=== PATIENT | female | born 1955 | race Two or more races ===

== ENCOUNTER 2019-10-08 13:53 | Inpatient (IN) | payer OTHER ==
[~2019-10-08] VITALS: Ht 165.1 cm; Wt 106.2 kg
[2019-10-08] MEDS ORDERED: ALUM & MAG HYDROX-SIMETH LIQ(MAALOX) 30 ML PO ONE (14:30)
[2019-10-08] MEDS ORDERED: LIDOCAINE VISCOUS 2% 15ML UD PO ONE (14:30)
[2019-10-08] MEDS ORDERED: DONNATAL 5ml ORAL Elix (BELLADONNA ALK-PHENOBARB) PO ONE (14:30)
[2019-10-08 14:47] LABS: Basophils # (auto) 0 10 ^3/uL (0-0.2); Basophils % (auto) 0.5 % (0.0-2.0); Eosinophils # (auto) 0 10 ^3/uL (0-0.8); Hematocrit 40.8 % (36.0-46.0); Hemoglobin 13.5 g/dL (12.2-16.2); Lymphocytes # (auto) 1.1 10 ^3/uL (0.4-5.4); Lymphocytes % (auto) 36.2 % (10.0-50.0); Mean Corpuscular Hemoglobin 27.4 pg (28.0-32.0); Mean Corpuscular Hgb Conc. 33.1 g/dL (32.0-36.0); Monocytes # (auto) 0.3 10 ^3/uL (0-1.3); Monocytes % (auto) 9.2 % (0.0-12.0); Neutrophils # (auto) 1.7 10 ^3/uL (1.6-8.6); Neutrophils % (auto) 54.1 % (37.0-80.0); Nucleated Red Blood Cells % 0.2 %; Platelet Count (auto) 199 10^3/uL (140-450); Red Blood Cells 4.91 10^6/uL (4.0-5.20); Red Cell Distribution Width 13.8 % (11.8-14.3); White Blood Cell 3.1 10^3/uL (4.4-10.8)
[2019-10-08 15:02] LABS: INR 1.01 (0.9-1.15); Partial Thromboplastin Time 26.5 sec (23.64-32.05)
[2019-10-08 15:05] LABS: Albumin 3.4 g/dL (3.4-5.0); Anion Gap 3 (5-15); Blood Urea Nitrogen 16 mg/dL (7-18); Carbon Dioxide 31 mmol/L (21-32); Chloride 100 mmol/L (98-107); Glucose 141 mg/dL (74-106); Lipase 181 U/L (73-393); Potassium 4.2 mmol/L (3.5-5.1); Sodium 134 mmol/L (136-145)
[2019-10-08 15:11] LABS: Alanine Aminotransferase 28 U/L (13-56); Alkaline Phosphatase 72 U/L (45-117); Aspartate Aminotransferase 24 U/L (15-37); BUN/Creatinine Ratio 15.7; Bilirubin, Total 0.4 mg/dL (0.2-1.0); GFR African American 70 mL/min; GFR Non-African American 58 mL/min; Total Protein 7.4 g/dL (6.4-8.2)
[2019-10-08] MEDS ORDERED: DOXYCYCLINE 100 MG TAB/CAP PO ONE (15:30)
[2019-10-08] MEDS ORDERED: DexAMETHasone SOD PHOS 10MG/1ML VIAL INJ IV ONE (15:30)
[2019-10-08] MEDS ORDERED: hydrOXYchloroQUINE SULFATE 200 MG TAB PO ONE (15:30)
[2019-10-08 17:01] LABS: CRP High Sensitivity 3.52 mg/dL (< 0.3)
[2019-10-08] MEDS ORDERED: ACETAMINOPHEN 325 MG TAB PO ONE (17:30)
[2019-10-08] MEDS ORDERED: ALUM & MAG HYDROX-SIMETH LIQ(MAALOX) 30 ML PO PRN (19:15)
[2019-10-08] MEDS ORDERED: ONDANSETRON HCL 4 MG/2 ML VIAL IV PRN (19:15)
[2019-10-08] MEDS ORDERED: ACETAMINOPHEN 500 MG TAB PO PRN (19:15)
[2019-10-08] MEDS ORDERED: ACETAMINOPHEN 325 MG TAB PO PRN (19:15)
[2019-10-08] MEDS ORDERED: NITROGLYCERIN 0.4 MG SL TAB SL PRN (19:15)
[2019-10-08] MEDS ORDERED: TEMAZEPAM 15 MG CAP PO PRN (19:15)
[2019-10-08] MEDS ORDERED: DOCUSATE SOD 100 MG CAP PO PRN (19:15)
[2019-10-08] MEDS: ALBUTEROL SULF HFA 90MCG INH 200DOSE IN SCH (21:20)
[2019-10-08] MEDS: BUDESONIDE (INHALATION) 180 MCG IH IN SCH (21:20)
[2019-10-08] MEDS ORDERED: FAMOTIDINE 20 MG TAB PO SCH (22:00)
[2019-10-08] MEDS: ENOXAPARIN SOD 100 MG/1 ML SYRINGE SC SCH (23:36)
[2019-10-08] MEDS: DOXYCYCLINE 100 MG TAB/CAP PO SCH (23:36)
[2019-10-08] MEDS: SODIUM CHLOR 0.9% PF (SALINE LOCK) 10ML VIAL/SYR IV SCH (23:36)
[2019-10-09] MEDS: SODIUM CHLOR 0.9% PF (SALINE LOCK) 10ML VIAL/SYR IV SCH ×3 (06:08→22:03)
[2019-10-09 08:30] VITALS: BP 132/72
[2019-10-09] MEDS: BUDESONIDE (INHALATION) 180 MCG IH IN SCH ×2 (08:33→22:00)
[2019-10-09] MEDS: ALBUTEROL SULF HFA 90MCG INH 200DOSE IN SCH ×3 (08:33→22:00)
[2019-10-09 09:00] VITALS: BP 163/88
[2019-10-09] MEDS: ASCORBIC ACID 1,000 MG TAB PO SCH (09:34)
[2019-10-09] MEDS: DOXYCYCLINE 100 MG TAB/CAP PO SCH ×2 (09:34→22:03)
[2019-10-09] MEDS: ZINC SULFATE 220mg CAP or TAB PO SCH (09:34)
[2019-10-09] MEDS: ENOXAPARIN SOD 100 MG/1 ML SYRINGE SC SCH ×2 (09:35→22:03)
[2019-10-09] MEDS: CHOLECALCIFEROL (VITD3) 2,000 UNIT CAP PO SCH (09:35)
[2019-10-09] MEDS ORDERED: LISI10TA6 PO (12:05)
[2019-10-09] MEDS ORDERED: FAMO20TA10 PO (12:05)
[2019-10-09] MEDS ORDERED: LOVA40TA72 PO (12:05)
[2019-10-09] MEDS ORDERED: CARV6.2551 PO (12:05)
[2019-10-09] MEDS ORDERED: PANT40T PO (12:05)
[2019-10-09] MEDS ORDERED: METF-370 PO (12:05)
[2019-10-09 14:08] VITALS: BP 133/67
[2019-10-09] MEDS ORDERED: DexAMETHasone SOD PHOS 10MG/1ML VIAL INJ IV ONE (15:00)
[2019-10-09] MEDS ORDERED: DEXTROSE (50%) 50ML SYRG IV PRN (15:30)
[2019-10-09] MEDS: ACCU-CHEK COMFORT CURVE STRIP VI SCH ×2 (17:10→22:15)
[2019-10-09] MEDS: SUCRALFATE 1 GM/10 ML ORAL SUSP PO SCH ×2 (17:10→22:02)
[2019-10-09] MEDS ORDERED: LISINOPRIL 10 MG TAB PO ONE (17:15)
[2019-10-09 17:30] VITALS: BP 162/92
[2019-10-09] MEDS: InsuLIN REG 1unit/0.01ml Soln (100units/ml) SC SCH ×2 (17:31→22:00)
[2019-10-09 22:00] VITALS: BP 132/77
[2019-10-09] MEDS: ATORVASTATIN 20 MG TAB PO SCH (22:01)
[2019-10-09] MEDS: CARVEDILOL 3.125 MG TAB PO SCH (22:02)
[2019-10-09] MEDS: PANTOPRAZOLE 40 MG TAB PO SCH (22:02)
[2019-10-09 23:14] LABS: Basophils # (auto) 0 10 ^3/uL (0-0.2); Basophils % (auto) 0.1 % (0.0-2.0); Eosinophils # (auto) 0 10 ^3/uL (0-0.8); Hematocrit 39.3 % (36.0-46.0); Lymphocytes # (auto) 0.9 10 ^3/uL (0.4-5.4); Lymphocytes % (auto) 13.3 % (10.0-50.0); Mean Corpuscular Hemoglobin 27.5 pg (28.0-32.0); Mean Corpuscular Volume 83.6 fL (80.0-100.0); Monocytes # (auto) 0.4 10 ^3/uL (0-1.3); Monocytes % (auto) 5.4 % (0.0-12.0); Neutrophils # (auto) 5.5 10 ^3/uL (1.6-8.6); Neutrophils % (auto) 81.2 % (37.0-80.0); Platelet Count (auto) 184 10^3/uL (140-450); Red Cell Distribution Width 13.4 % (11.8-14.3); White Blood Cell 6.7 10^3/uL (4.4-10.8)
[2019-10-09 23:32] LABS: Albumin 3.1 g/dL (3.4-5.0); Calcium 8.9 mg/dL (8.5-10.1); Potassium 4.2 mmol/L (3.5-5.1)
[2019-10-09 23:34] LABS: BUN/Creatinine Ratio 20.9
[2019-10-09 23:38] LABS: Bilirubin, Total 0.4 mg/dL (0.2-1.0); Total Protein 6.9 g/dL (6.4-8.2)
[2019-10-09 23:48] LABS: Urine Bacteria FEW /hpf (None Seen); Urine Blood Negative /uL (Negative); Urine Specific Gravity 1.017 (1.001-1.035); Urine WBC 1 /hpf (0 - 5)
[2019-10-10 05:00] VITALS: BP 134/75
[2019-10-10 06:46] LABS: Basophils # (auto) 0 10 ^3/uL (0-0.2); Basophils % (auto) 0.1 % (0.0-2.0); Eosinophils # (auto) 0 10 ^3/uL (0-0.8); Hematocrit 41.6 % (36.0-46.0); Hemoglobin 13.8 g/dL (12.2-16.2); Lymphocytes # (auto) 1.1 10 ^3/uL (0.4-5.4); Lymphocytes % (auto) 15.2 % (10.0-50.0); Mean Corpuscular Hgb Conc. 33.2 g/dL (32.0-36.0); Mean Corpuscular Volume 84.2 fL (80.0-100.0); Monocytes # (auto) 0.4 10 ^3/uL (0-1.3); Monocytes % (auto) 5.4 % (0.0-12.0); Neutrophils # (auto) 5.9 10 ^3/uL (1.6-8.6); Neutrophils % (auto) 79.3 % (37.0-80.0); Nucleated Red Blood Cells % 0.1 %; Platelet Count (auto) 191 10^3/uL (140-450); Red Blood Cells 4.94 10^6/uL (4.0-5.20); Red Cell Distribution Width 13.5 % (11.8-14.3); White Blood Cell 7.5 10^3/uL (4.4-10.8)
[2019-10-10] MEDS: SODIUM CHLOR 0.9% PF (SALINE LOCK) 10ML VIAL/SYR IV SCH ×3 (06:55→22:21)
[2019-10-10] MEDS: ACCU-CHEK COMFORT CURVE STRIP VI SCH ×4 (06:56→22:23)
[2019-10-10] MEDS: SUCRALFATE 1 GM/10 ML ORAL SUSP PO SCH ×4 (06:56→22:21)
[2019-10-10] MEDS: InsuLIN REG 1unit/0.01ml Soln (100units/ml) SC SCH ×4 (07:00→22:27)
[2019-10-10 07:07] LABS: Albumin 3.2 g/dL (3.4-5.0); Calcium 9.2 mg/dL (8.5-10.1)
[2019-10-10 07:15] LABS: BUN/Creatinine Ratio 20.2; Bilirubin, Total 0.4 mg/dL (0.2-1.0); CRP High Sensitivity 1.88 mg/dL (< 0.3); Total Protein 7.3 g/dL (6.4-8.2)
[2019-10-10] MEDS: ALBUTEROL SULF HFA 90MCG INH 200DOSE IN SCH ×3 (07:38→21:54)
[2019-10-10] MEDS: BUDESONIDE (INHALATION) 180 MCG IH IN SCH ×2 (07:38→21:54)
[2019-10-10 08:51] LABS: INR 1.04 (0.9-1.15); Partial Thromboplastin Time 29.1 sec (23.64-32.05)
[2019-10-10 09:00] VITALS: BP 131/74
[2019-10-10] MEDS: DexAMETHasone SOD PHOS 10MG/1ML VIAL INJ IV SCH (09:11)
[2019-10-10] MEDS: ASCORBIC ACID 1,000 MG TAB PO SCH (09:12)
[2019-10-10] MEDS: DOXYCYCLINE 100 MG TAB/CAP PO SCH ×2 (09:12→22:22)
[2019-10-10] MEDS: PANTOPRAZOLE 40 MG TAB PO SCH ×2 (09:12→22:22)
[2019-10-10] MEDS: ZINC SULFATE 220mg CAP or TAB PO SCH (09:12)
[2019-10-10] MEDS: CARVEDILOL 3.125 MG TAB PO SCH ×2 (09:12→22:22)
[2019-10-10] MEDS: CHOLECALCIFEROL (VITD3) 2,000 UNIT CAP PO SCH (09:13)
[2019-10-10] MEDS: LISINOPRIL 10 MG TAB PO SCH (09:13)
[2019-10-10] MEDS: ENOXAPARIN SOD 100 MG/1 ML SYRINGE SC SCH ×2 (09:13→22:22)
[2019-10-10 13:00] VITALS: BP 155/70
[2019-10-10 18:08] VITALS: BP 154/74
[2019-10-10 22:00] VITALS: BP 141/61
[2019-10-10] MEDS: ATORVASTATIN 20 MG TAB PO SCH (22:22)
[2019-10-11 05:00] VITALS: BP 123/63
[2019-10-11] MEDS: SODIUM CHLOR 0.9% PF (SALINE LOCK) 10ML VIAL/SYR IV SCH ×2 (06:51→14:23)
[2019-10-11] MEDS: ACCU-CHEK COMFORT CURVE STRIP VI SCH ×2 (06:52→11:30)
[2019-10-11] MEDS: InsuLIN REG 1unit/0.01ml Soln (100units/ml) SC SCH ×2 (06:52→12:35)
[2019-10-11] MEDS: SUCRALFATE 1 GM/10 ML ORAL SUSP PO SCH ×2 (06:52→12:34)
[2019-10-11 08:00] VITALS: BP 145/67
[2019-10-11] MEDS: ALBUTEROL SULF HFA 90MCG INH 200DOSE IN SCH ×2 (08:16→15:05)
[2019-10-11] MEDS: BUDESONIDE (INHALATION) 180 MCG IH IN SCH (08:17)
[2019-10-11] MEDS: DexAMETHasone SOD PHOS 10MG/1ML VIAL INJ IV SCH (09:26)
[2019-10-11] MEDS: CARVEDILOL 3.125 MG TAB PO SCH (09:27)
[2019-10-11] MEDS: PANTOPRAZOLE 40 MG TAB PO SCH (09:27)
[2019-10-11] MEDS: ZINC SULFATE 220mg CAP or TAB PO SCH (09:27)
[2019-10-11] MEDS: DOXYCYCLINE 100 MG TAB/CAP PO SCH (09:28)
[2019-10-11] MEDS: CHOLECALCIFEROL (VITD3) 2,000 UNIT CAP PO SCH (09:28)
[2019-10-11] MEDS: ASCORBIC ACID 1,000 MG TAB PO SCH (09:28)
[2019-10-11] MEDS: ENOXAPARIN SOD 100 MG/1 ML SYRINGE SC SCH (09:28)
[2019-10-11] MEDS: LISINOPRIL 10 MG TAB PO SCH (09:30)
[2019-10-11 12:00] VITALS: BP 139/79
[2019-10-11] MEDS ORDERED: PRED20TA2 PO (13:11)
[2019-10-11] MEDS ORDERED: FAMO20TA10 PO (13:11)
[2019-10-11] MEDS ORDERED: AZIT500T66 PO (13:11)
[2019-10-11] MEDS ORDERED: CHOL1CAP47 PO (13:11)
== END 2019-10-11 16:28 | disposition home or self-care (01) | DRG 177 ==
LOC: ER 13:53 → TELE 13:54 → TELE-EAST 10-09 08:20
PROVIDERS: ADMIT Internal Medicine; ATTEND Hospitalist
DX: U07.1 COVID-19 (principal); J12.89 Other viral pneumonia; J96.01 Acute respiratory failure with hypoxia; N17.0 Acute kidney failure with tubular necrosis; I11.9 Hypertensive heart disease without heart failure; K29.70 Gastritis, unspecified, without bleeding; K21.9 Gastro-esophageal reflux disease without esophagitis; E11.9 Type 2 diabetes mellitus without complications; E66.9 Obesity, unspecified; M48.00 Spinal stenosis, site unspecified; Z88.5 Allergy status to narcotic agent; Z88.8 Allergy status to other drugs, medicaments and biological substances; Z68.38 Body mass index [BMI] 38.0-38.9, adult
CPT/HCPCS: 36415; 71045; 74176; 76705; 80053; 81001; 82105; 82728; 82962; 83036; 83615; 83690; 83735; 84443; 84484; 85025; 85379; 85610; 85730; 86141; 86301; 94640; 96374; G0378; J1100; J1815